=== PATIENT | female | born 1990 | race African-American/Black ===

== ENCOUNTER 2023-06-05 19:35 | Emergency (ER) | payer OTHER ==
[~2023-06-05] VITALS: Ht 165.1 cm; Wt 68.5 kg
[2023-06-05 21:12] VITALS: TEMP 98.1
[2023-06-05 23:45] VITALS: BP 121/78; O2SAT 99
== END 2023-06-05 23:46 | disposition home or self-care (01) ==
LOC: ER 19:41
DX: M25.531 Pain in right wrist (principal)
CPT/HCPCS: 73110